=== PATIENT | male | born 1955 | race Caucasian/White ===

== ENCOUNTER 2021-03-24 05:13 | Observation (INO) ==
--- NOTE | 2021-03-04 15:52 | PAT Medication Instructions ---
Medication Instructions Date of Service March 04, 2021 Home Medications ascorbic acid (vitamin C) [Vitamin C] 500 mg PO DAILY cholecalciferol (vitamin D3) [Vitamin D3] 100 mcg PO DAILY ferrous sulfate [iron] 325 mg PO DAILY ibuprofen 400 mg PO HS levothyroxine 75 mcg PO QAM metformin 500 mg PO BID simvastatin 40 mg PO QAM vitamin B complex [B Complex] 1 tab PO DAILY ASK your surgeon for instructions ibuprofen 400 mg PO HS DO NOT take the morning of surgery ascorbic acid (vitamin C) [Vitamin C] 500 mg PO DAILY cholecalciferol (vitamin D3) [Vitamin D3] 100 mcg PO DAILY ferrous sulfate [iron] 325 mg PO DAILY metformin 500 mg PO BID vitamin B complex [B Complex] 1 tab PO DAILY Take morning of surgery With a small sip of water, OTHERWISE NOTHING TO EAT OR DRINK AFTER MIDNIGHT: levothyroxine 75 mcg PO QAM simvastatin 40 mg PO QAM Take evening before surgery metformin 500 mg PO BID Other Notes If you have any questions please call us at [phone] or [phone] or [phone] or [phone]
--- NOTE | 2021-03-08 11:31 | Anesthesiology Consultation ---
Date of Service March 08, 2021 Assessment & Plan (1) Encounter for pre-operative examination: - COVID screening: Per assessment on 03/08: Travel screen negative, no known COVID-19 positive contacts or current COVID-19 related symptoms. Patient vaccinated. Surgeon arranging preop COVID testing. Awaiting results. - ETOH use: 3 beers/day or less (typically nighttime use) - Check [facility] AM DOS Chart Review Chart Review: Acceptable Risk for Surgery (pending surgeon-ordered PCP clearance) and Patient seen in Pre Admission Testing Teaching & Discussion Pre-Anesthesia Teaching/Discussion Notes: Instructed NPO after midnight before surgery,except medications with 15 cc of water. Medication instructions provided according to the PAT guidelines. History Surgery Operation Date: 03/24/21 08:50 Proposed Procedures p Left Total Hip Arthroplasty - Scooby Rojo MD Height/Weight Height: 5 ft 9 in Weight: 77.9 kg Allergies Allergy/AdvReac Type Severity Reaction Status Date / Time Penicillins Allergy Unknown Unknown Verified 03/04/21 15:51 childhood reaction Medications Home Medications Medication Instructions Recorded Confirmed Last Taken ascorbic acid (vitamin C) [Vitamin 500 mg PO DAILY 03/03/21 03/03/21 Unknown C] cholecalciferol (vitamin D3) 100 mcg PO DAILY 03/03/21 03/03/21 Unknown [Vitamin D3] ferrous sulfate [iron] 325 mg PO DAILY 03/03/21 03/03/21 Unknown ibuprofen 400 mg PO HS 03/03/21 03/03/21 Unknown levothyroxine 75 mcg PO QAM 03/03/21 03/03/21 Unknown metformin 500 mg PO BID 03/03/21 03/03/21 Unknown simvastatin 40 mg PO QAM 03/03/21 03/03/21 Unknown vitamin B complex [B Complex] 1 tab PO DAILY 03/03/21 03/03/21 Unknown Past Medical History Medical History Diabetes mellitus, type 2 NIDDM Hyperlipidemia Hypothyroidism Osteoarthritis Exercise / Class Metabolic Activity II 4-5 Yardwork/Stairs/Walk up hill (one flight of stairs (no chest pain, no sob)) Past Family History Family History Mother Diabetes Father Diabetes Past Surgical History Surgical History History of colonoscopy History of esophagogastroduodenoscopy (EGD) History of surgery on right wrist (fracture repair) History of tonsillectomy History of total hip arthroplasty Right History of total knee replacement R/L Hx of inguinal hernia repair [place] teeth extracted Past Anesthesia History No Hx of Anesthesia Complications and No Family Hx of Anesthesia Complications History of PONV No Hx of PONV and No Hx of Motion Sickness Social History Smoking Status: Former smoker Do You Dip or Chew Tobacco: No Smoking End Date: Quit 40 yrs ago Hx Alcohol Use: Yes Alcohol type: beer alcohol intake frequency: 3 or more drinks per day Alcohol Intake Frequency Comment: 3 beers/day or less (typically nighttime use) Hx Substance Use: No substance use type: does not use Review of Systems No snoring. Patient denies chest pain, shortness of breath, dyspnea on exertion, fever, chills, cough, wheezing, palpitations. Physical Exam Vital Signs VITALS BP 120/76 P 66 TEMP 97.6 SP02 100%RA RESP 16 PHYSICAL Full cervical extension range of motion. Full TMJ range of motion. TMD 4 finger breaths Mallampati Score 3 Dentition: missing molars, upper front crown Lungs: clear throughout to auscultation, prolonged inspiratory phase Cardiac: regular rate and rhythm, no murmurs noted Spine: normal Carotid arteries: negative bruit Extremities: no edema Trimmed cole Lab Results Anesthesia Preop Results Results Anesthesia Widget: WBC 6.12 K/uL (4.8-10.8) 03/08/21 Hgb 14.5 g/dL (14.0-18.0) 03/08/21 Hct 40.6 % (42-52) L 03/08/21 Plt 223 K/uL (130-400) 03/08/21 Na 140 mmol/L (136-145) 03/08/21 K 4.1 mmol/L (3.5-5.1) 03/08/21 Cl 107 mmol/L (98-107) 03/08/21 CO2 27 mmol/L (21-32) 03/08/21 BUN 13 mg/dl (7-18) 03/08/21 Creat 0.70 mg/dl (0.6-1.4) 03/08/21 Glucose Level 113 mg/dl (70-99) H 03/08/21 PT 9.9 Seconds (9.0-12.0) 03/08/21 PTT 27.6 Seconds (21.0-31.0) 03/08/21 INR 1.0 (0.9-1.1) 03/08/21 HA1c 6.6 % (4.5-5.6) H 03/08/21 Urine Color Yellow 03/08/21 Urine Appearance Clear (Clear) 03/08/21 Urine pH 5.0 (4.5-7.5) 03/08/21 Urine Specific [place] 1.012 (1.000-1.030) 03/08/21 Urine Protein Negative (Negative) 03/08/21 Urine Glucose (UA) Negative (Negative) 03/08/21 Urine Ketones Negative (Negative) 03/08/21 Urine Blood Negative (Negative) 03/08/21 Urine Nitrite Negative (Negative) 03/08/21 Urine Bilirubin Negative (Negative) 03/08/21 Urine Urobilinogen Negative (Negative) 03/08/21 Urine Leukocyte Esterase 1+ (Negative) H 03/08/21 Urine WBC (Auto) 5-10 /hpf (0-5) H 03/08/21 Urine RBC (Auto) 0-4 /hpf (0-4) 03/08/21 Urine Hyaline Casts (Auto) 1-5 /lpf (0-5) 03/08/21 Urine Epithelial Cells (Auto) 0-5 /lpf (0-5) 03/08/21 Urine Bacteria (Auto) 3+ (Negative) H 03/08/21 Blood Type A Positive 03/08/21 Antibody Screen NEGATIVE 03/08/21 Lab Comments: Surgeon's office aware of positive UA. Testing Electrocardiogram Date: 04/07/21 Normal sinus rhythm at 63 bpm. LAD. Incomplete right bundle branch block. No significant change compared to 03/05/2007 per biophysics professor review. Chest X-Ray Date: 03/08/21 Findings: + NAD Echocardiogram Date: 11/07/19 EF 60%. Moderate LAD. Mild MR. Physiologic MD. Stress Test Date: 11/07/19 Stress EKG was negative for myocardial ischemia at 108% MPHR. High level of exercise achieved. 12.8 METS. Pulmonary Function Test Date: 11/07/19 Minimal obstructive lung defect. Lung volumes are within normal limits. Moderate decrease in diffusing capacity. FEF 25 to 75% change by 11%. This is interpreted as an insignificant response to bronchodilator.
--- NOTE | 2021-03-09 13:08 | History & Physical Report ---
Date of Service March 09, 2021 Assessment & Plan (1) Degenerative joint disease of left hip: Postoperative prescriptions for Percocet and Coumadin will be provided at discharge from the hospital. Anticipate discharge to home with home health services. He already has crutches and prefers to use those over a walker. Preoperative lab work, EKG, and chest x-ray were ordered. Medical clearance has already been performed by his PCP. The patient is aware of the COVID-19 risks associated with surgery. He is currently asymptomatic of any COVID-19 symptoms. He will obtain nasal swab testing 2 days prior to surgery per hospital protocol. PDMP was checked and there are no concerning findings. History of Present Illness Chief Complaint: Left hip pain Primary Care Provider: NO PCP This 65-year-old male presents for his preoperative history and physical. He is scheduled to undergo a left total hip arthroplasty on 03/24/2021 and has had left hip pain for the last 10 years. It has become worse over the last 6-12 months. 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 He notes loss of motion of the hip. Occasional night pain. Pain is worse with weightbearing. It is affecting his ADLs. He has a history of right total hip arthroplasty 16 years ago and states it is doing well. He elects to proceed with the same on the left. No numbness or tingling. Pain is primarily in his groin. Preoperative imaging has been obtained. Allergies Allergy/AdvReac Type Severity Reaction Status Date / Time Penicillins Allergy Unknown Unknown Verified 03/04/21 15:51 childhood reaction Home Medications Medication Instructions Recorded Confirmed Type ascorbic acid (vitamin C) [Vitamin 500 mg PO DAILY 03/03/21 03/03/21 History C] cholecalciferol (vitamin D3) 100 mcg PO DAILY 03/03/21 03/03/21 History [Vitamin D3] ferrous sulfate [iron] 325 mg PO DAILY 03/03/21 03/03/21 History ibuprofen 400 mg PO HS 03/03/21 03/03/21 History levothyroxine 75 mcg PO QAM 03/03/21 03/03/21 History metformin 500 mg PO BID 03/03/21 03/03/21 History simvastatin 40 mg PO QAM 03/03/21 03/03/21 History vitamin B complex [B Complex] 1 tab PO DAILY 03/03/21 03/03/21 History Past Med/Surg History Medical History Diabetes mellitus, type 2 NIDDM Hyperlipidemia Hypothyroidism Osteoarthritis Surgical History History of colonoscopy History of esophagogastroduodenoscopy (EGD) History of surgery on right wrist (fracture repair) History of tonsillectomy History of total hip arthroplasty Right History of total knee replacement R/L Hx of inguinal hernia repair [place] teeth extracted Family History Mother Diabetes Father Diabetes Other Cancer Social History (Updated 03/09/21 @ 13:04 by Magno Maciel PA-C) Smoking Status: Former smoker Second Hand Exposure: No; Hx Alcohol Use: Yes Alcohol type: beer Hx Substance Use: No Preferred Language: Nigerian Communication Ability: Effective Visual Impairment: No Limitations Shift Leader Required: No Beliefs That Will Affect Care: None marital status: Current Living Situation: Spouse current occupational status: employed Feels Safe at Home: Yes Assistive Devices: Glasses and Hearing Aid - Bilateral Review of Systems Review of Systems: All systems reviewed & are unremarkable except as noted in HPI & below A total of 10 systems were reviewed. Physical Exam Physical Exam: Vitals: Height 174.5 cm, weight 77.8 kilograms, BMI 25.5, temperature 36.3, BP 120/82, pulse 70, O2 sat 95% on room air. General: Well-developed, well-nourished, elderly white male in no acute distress. Sitting in a chair. Alert and oriented. Skin: Warm and dry with good turgor. No rashes or lesions. No ecchymosis or erythema. HEENT: Normocephalic, atraumatic. Eyes: PERRLA, EOMI. Nares and oropharynx exams deferred due to COVID precautions. Heart: RRR, no MGR. Lungs: Clear to auscultation bilaterally, no crackles, rhonchi or wheezing, good air movement. Abdomen: Bowel sounds present x4, soft, nontender. No organomegaly. No masses. Musculoskeletal: Left hip evaluation reveals no obvious asymmetry or deformity. He has no discomfort with palpation over the IT band or greater trochanter. There is anterior discomfort in the flexion crease with motion. Hip flexion to just 100 degrees before onset of significant pain. Internal rotation is limited to essentially neutral. He is fairly well locked in. External rotation of around 25 degrees before significant pain. Ambulating with an antalgic gait. Strength is 5/5 for resisted hip flexion, abduction, and adduction. Good quad strength for resisted knee extension. Neurologic: Gross sensation is intact across both lower extremities by soft touch. Peripheral pulses are 2+. Results & Data Results & Data ([facility]) Diagnostic Findings Radiographic imaging previously obtained shows significant osteoarthritic change within the femoral acetabular joint of the left hip. He is [id number]. Periarticular osteophytes are present. No evidence for fracture.
[2021-03-24] MEDS ORDERED: VANCOMYCIN HCL 1,250 MG in SODIUM CHLORIDE 0.9% 250 ML IV SCH ×2 (06:00→18:00)
[2021-03-24] MEDS ORDERED: LR 500ML BOLUS, THEN 15ML/HR IV SCH (06:00)
[2021-03-24] MEDS ORDERED: ROPIVACAINE 0.5% HCL/PF 150 MG, BUPIVACAINE 0.75% MPF 20 ML, EPINEPHrine 0.15 MG, Ketor... INFIL SCH (06:00)
[2021-03-24] MEDS ORDERED: TRANEXAMIC ACID 1,000 MG **IV Pre-op IV SCH (06:00)
--- NOTE | 2021-03-24 06:18 | History & Physical Bridge Note ---
Date of Service March 24, 2021 History & Physical Bridge Note I have examined the patient, reviewed the History & Physical and in the interval since the performance of the History & Physical I have noted the following changes of clinical significance: consent obtained/site verified/covid screen negative.no changes noted
[2021-03-24] MEDS ORDERED: fentaNYL citrate 100 MCG/2 ML VIAL ONE (06:25)
[2021-03-24] MEDS ORDERED: MIDAZOLAM HCL 1 MG/ML 2ML VIAL ONE (06:25)
[2021-03-24] MEDS ORDERED: ORTHO JOINT ANESTHETIC ONE (06:32)
[2021-03-24] MEDS ORDERED: BUPIVACAINE 0.5 % 5 MG/1 ML PF 10ML VIAL ONE (06:46)
[2021-03-24] MEDS ORDERED: ATROPINE SULFATE 0.1 MG/ML 10ML SYR IV PRN (06:56)
[2021-03-24] MEDS ORDERED: ePHEDrine sulfate 50 MG/ML AMP IV PRN (06:56)
[2021-03-24] MEDS ORDERED: ONDANSETRON INJ 2 MG/ML 2 ML VIAL IV PRN ×2 (06:56→09:39)
[2021-03-24] MEDS ORDERED: fentaNYL citrate 100 MCG/2 ML VIAL IV PRN (06:56)
[2021-03-24] MEDS ORDERED: PROPOFOL IV EMULSION 10 MG/ML 20 ML VIAL IV ONE (07:24)
[2021-03-24] MEDS ORDERED: ePHEDrine sulfate 50 MG/ML AMP ONE (07:35)
[2021-03-24] MEDS ORDERED: PHENYLEPHRINE 100MCG/ML 5ML SYR ONE (07:48)
--- NOTE | 2021-03-24 08:22 | Post Operative Brief Note ---
Immediate Post Op Note v1 Date of Surgery March 24, 2021 Pre & Post Diagnosis Operation Date: 03/24/21 07:00 Pre-Op Diagnosis: Left Hip Degenerative Joint Disease Post-Op Diagnosis: Left Hip Degenerative Joint Disease I identified the patient and participated in the time-out.: Yes Procedure Operation Date: 03/24/21 07:00 Actual Procedures p Left Total Hip Arthroplasty--Uncemented(Left) - Scooby Rojo MD Surgeon Scooby Rojo MD Supervisor Slashing [facility] Estimated Blood Loss 50 Findings Consistent with Post-Op Diagnosis
--- NOTE | 2021-03-24 08:29 | Operative Report ---
Post Operative Report Pre & Post Diagnosis Operation Date: 03/24/21 07:00 Pre-Op Diagnosis: Left Hip Degenerative Joint Disease Post-Op Diagnosis: Left Hip Degenerative Joint Disease I identified the patient and participated in the time-out.: Yes Procedure Operation Date: 03/24/21 07:00 Actual Procedures p Left Total Hip Arthroplasty--Uncemented(Left) - Scooby Rojo MD Surgeon HÉCTOR Rojo MD Marine Mammal Trainer guillermo OROZCO Estimated Blood Loss 50 Findings Consistent with Post-Op Diagnosis Specimens see operative report Drains none Complications none Disposition Accompanied Patient To Recovery: Yes Disposition: Recovery Room Indications This 65-year-old male presented to the office with complaints of persisting and intractable left hip pain. He had tried conservative care measures without improvement. He elected to proceed with surgical intervention after being educated about potential risks and outcomes. Preoperative imaging was obtained. He has a history of previous right total hip arthroplasty and has done well with it. He elects to proceed with the same on the left. Description of Procedure Patient was administered a spinal anesthetic and then taken to the operating room where he was given sedation. He was prepped and draped in the usual sterile fashion. Please see Dr. Rojo's operative report for specifics of the procedure. I was present for the entire case from initial patient positioning through final wound closure. Assistance was provided in tissue retraction, hemostasis, trial implant placement, final implant placement, and final wound closure. Patient was taken to the recovery room in satisfactory condition. I attest to the content of the Intraoperative Record and any orders documented therein. Any exceptions are noted below.
--- NOTE | 2021-03-24 08:46 | XRay Report ---
AP PELVIS History: Left total hip arthroplasty. Degenerative arthritis. Postop. FINDINGS: The patient is status post a left total hip arthroplasty. The hardware is intact. No fractu re or dislocation. Skin jennifer are in place. Evidence for prior right total arthroplasty. IMPRESSION: Left total hip arthroplasty. No evidence for hardware complication. ACT 112: Negative or not required by law. Electronically signed by: Jimy Yeh M.D. 03/24/2021 8:45 AM
--- NOTE | 2021-03-24 09:01 | Progress Notes ---
DATE OF NOTE: 03/24/2021. SUBJECTIVE: Postop check status post left total hip replacement. Patient is resting comfortably. D enies chest pain, shortness of breath, fever, chills, nausea, vomiting or headache. OBJECTIVE: Vital signs are stable. He is afebrile. Neurovascular check is limited by his spinal and is starting to wear off. Hip is located. Wound cristy ssing clean, dry and intact. Postoperative x-ray looks excellent. ASSESSMENT: Doing well. Continue with care pathway. Discharge likely tomorrow. Job ID: [id number]
--- NOTE | 2021-03-24 09:05 | Discharge Summary (DS) ---
DATE OF DISCHARGE: Potential 03/25/2021. CHIEF COMPLAINT: Left hip pain. HISTORY OF PRESENT ILLNESS: The patient underwent elective left total hip replacement. HOSPITAL COURSE: Has been uneventful to date. Postop x-rays look excellent. HOME MEDICATIONS: Please see medication reconciliation sheet includes metformin, simvastatin, levoth yroxine, ibuprofen, iron, vitamin D, vitamin C supplements, vitamin B supplements. PAST MEDICAL/PAST SURGICAL HISTORY: Remarkable for diabetes type 2, hyperlipidemia, hypothyroidism, o steoarthritis. SURGICAL HISTORY: Is remarkable for EGD, colonoscopies, right wrist surgery, tonsillectomy, right hip replacement, left and right knee replacement, inguinal hernia repair, wisdom teeth extraction. FAMILY HISTORY: Mother, diabetes. Father, diabetes. Cancer in the family. REVIEW OF SYSTEMS: Reveals no chest pain, shortness of breath, fever, chills, nausea, vomiting or he adache. The patient lives at home, is and has no issues. Is hard of hearing and has glasses and hearing aids. Postoperative x-rays look excellent. ASSESSMENT: Status post left total hip replacement. Continue with care pathway, discharge tomorrow if he does well overnight. Job ID: [id number]
--- NOTE | 2021-03-24 09:13 | Anesthesiology Progress Note ---
Date of Service March 24, 2021 Anesthesia Post Procedure Vital Signs Vital Signs: Temp Pulse Pulse Resp BP BP Pulse Ox 03/24/21 09:05 36.1 C L 65 20 110/82 98 03/24/21 08:55 60 14 108/71 100 03/24/21 08:45 66 16 110/69 100 03/24/21 08:35 82 18 120/72 100 03/24/21 08:28 36.3 C L 83 14 114/88 97 03/24/21 06:20 36.8 C 70 20 153/87 H 99 03/24/21 05:44 37.1 C 69 18 133/98 98 Transfer of Care Handoff Completed per policy Notes Mental Status: alert / awake / arousable Patient Amnestic to Procedure: Yes Nausea / Vomiting: adequately controlled Pain: adequately controlled Airway Patency, RR, SpO2: stable & adequate BP & HR: stable & adequate Hydration State: stable & adequate Neuraxial Anesthesia: was administered and sensory block is resolving Anesthetic Complications: no major complications apparent
--- NOTE | 2021-03-24 09:28 | Operative Report (OR) ---
DATE OF PROCEDURE: 03/24/2021. SURGEON: Scooby Rojo MD. MUSEUM SECURITY CHIEF: JERED Wilkinson, no resident or fellow available. PREOPERATIVE DIAGNOSIS: Osteoarthritis with severe impingement, left hip. POSTOPERATIVE DIAGNOSIS: Osteoarthritis with severe impingement, left hip. OPERATION PERFORMED: Noncemented left total hip replacement. SUMMARY OF IMPLANTS: Size 54 sector cup 30 screw 6.5 diameter, 36 x 54 neutral liner, 4 high offset Tri-Lock stem, 36+5 ceramic head. Hole eliminator. ESTIMATED BLOOD LOSS: 50 mL CRYSTALLOID: Per anesthesia. BONE PATHOLOGY: Pending. DVT prophylaxis per protocol. PERIOPERATIVE SITUATION: Medically cleared male with intractable hip pain with physical exam, x-ray v enrico consistent with severe osteoarthritis. He wants to proceed with surgical treatment had a hip rep lacement done on the opposite side many years ago. DESCRIPTION OF PROCEDURE: The patient was identified, site verified, consent verified. Antibiotics confirmed to be given. The left lower extremity was prepped and draped in usual routine fashion. Th e patient was placed in the right lateral decubitus position. Left lower extremity prepped and drape d in the usual routine fashion. A posterior approach to the hip was then made. Sharp dissection car ried through skin, blunt dissection down to fascia. The IT band and gluteus conrado fascia were then split. The sciatic nerve was identified. Appropriate retractors were placed. Short external rotat ors were identified and released, capsule released and teed and preserved. The hip was then dislocat ed. The femoral neck resected. The labrum and degenerative tissue was excised. Serial reaming de los santos ied up to a size 54, and a 54 cup impacted into appropriate inclination and anteversion. Excellent f ixation was obtained and a 6.5 x threaded screw was placed with excellent purchase. A trial liner wa s seated and the osteophytes were resected posteriorly and anteriorly. The wound was then irrigated. The hip was then flexed and internally rotated proximal femur prepared with a box toe flanger stitchdowns, canal fin rosaura, lateralizing rasp and serial broaching up to a size 4 and using a size 4 Tri-Lock high offset +5 neck length, 36 head was very stable in all planes. The leg lengths were within millimeters of equa lity, perhaps slightly long on the involved side. Hip was dislocated. The wound irrigated. All tri al implants were removed. The hole eliminator seated, permanent liner seated. Permanent head and st em seated. The hip reduced. It was stable in all planes. Leg lengths were again very, very close. Wound was irrigated one final time and then the capsule closed with #2 Vicryl. Short external rotat ors with #2 Vicryl. IT band and gluteus conrado fascia with #2 Vicryl, subcutaneous layer with 2-0 V icryl and stainless steel clips applied. The Orthomix was injected about the superficial layers only . The patient was then transferred to recovery room in satisfactory condition, having tolerated the procedure well. Job ID: [id number]
[2021-03-24] MEDS ORDERED: METOCLOPRAMIDE HCL INJ 5 MG/ML 2 ML VIAL IV PRN (09:39)
[2021-03-24] MEDS ORDERED: SODIUM CHLORIDE 0.9% 1000ML 1,000 ML IV SCH (09:39)
[2021-03-24] MEDS ORDERED: MAGNESIUM HYDROXIDE SUSP 30 ML UDC PO PRN (09:39)
[2021-03-24] MEDS ORDERED: VANCOMYCIN CONSULT ACTIVE PRN (09:39)
[2021-03-24] MEDS ORDERED: diphenhydrAMINE 50 MG/ML VIAL IV PRN (09:39)
[2021-03-24] MEDS ORDERED: bisacodyL 10 MG SUPP PR PRN (09:39)
[2021-03-24] MEDS ORDERED: HYDROmorphone INJ 0.5 MG/0.5 ML SYR IV PRN (09:39)
[2021-03-24] MEDS ORDERED: NALOXONE HCL 0.4 MG/1 ML VIAL/CARP IV PRN (09:39)
[2021-03-24] MEDS ORDERED: TAMSULOSIN HCL 0.4 MG CAP PO PRN (09:39)
[2021-03-24] MEDS: KETOROLAC TROMETHAMINE 15 MG/ML VIAL IV SCH ×3 (11:00→21:21)
[2021-03-24] MEDS: DOCUSATE SODIUM 100 MG CAP PO SCH ×2 (11:02→21:19)
[2021-03-24] MEDS: SIMVASTATIN 40 MG TAB PO SCH (11:02)
[2021-03-24] MEDS: MULTIVITAMIN TAB PO SCH (11:03)
[2021-03-24] MEDS: LEVOTHYROXINE SODIUM 75 MCG TABLET PO SCH (11:03)
[2021-03-24] MEDS ORDERED: GLUCOSE 10 TABS/TUBE PO PRN (11:45)
[2021-03-24] MEDS ORDERED: CARBOHYDRATES FOR HYPOGLYCEMIA PO PRN (11:45)
[2021-03-24] MEDS ORDERED: GLUCAGON FOR INJ 1 MG VIAL SQ PRN (11:45)
[2021-03-24] MEDS ORDERED: DEXTROSE 50% 50 ML SYRINGE IV PRN (11:45)
[2021-03-24] MEDS ORDERED: GLUCOSE 40% GEL 15 GM TUBE PO PRN (11:45)
[2021-03-24] MEDS: oxyCODONE HCL IR 5 MG TAB (IMMEDIATE RELEASE) PO PRN ×3 (13:03→21:19)
[2021-03-24] MEDS: ACETAMINOPHEN 500 MG TAB PO SCH ×2 (13:04→21:20)
[2021-03-24] MEDS: INSULIN ASPART 100 UNITS/ML 3 ML PEN SC SCH ×3 (13:42→21:15)
[2021-03-24] MEDS ORDERED: ORTHO WARFARIN NOMOGRAM SCH (14:00)
[2021-03-24] MEDS ORDERED: TRANEXAMIC ACID / 0.7% NACL 1,000 MG/100 ML BAG IV SCH (14:33)
[2021-03-24 16:15] LABS: Prothrombin Time 10.5 Seconds (9.0-12.0)
[2021-03-24] MEDS ORDERED: WARFARIN SOD 5 MG TAB PO SCH (16:30)
[2021-03-24] MEDS: ASCORBIC ACID 500 MG TAB PO SCH (18:23)
[2021-03-24] MEDS: FERROUS GLUCONATE 324 MG TAB PO SCH (18:23)
[2021-03-24] MEDS ORDERED: SENNA 8.6 MG TAB PO SCH (21:00)
[2021-03-25] MEDS: KETOROLAC TROMETHAMINE 15 MG/ML VIAL IV SCH (03:36)
[2021-03-25] MEDS: LEVOTHYROXINE SODIUM 75 MCG TABLET PO SCH (05:53)
[2021-03-25] MEDS: ACETAMINOPHEN 500 MG TAB PO SCH (05:53)
[2021-03-25 06:16] LABS: Hematocrit (blood only) 31.6 % (42-52); Hemoglobin 11.3 g/dL (14.0-18.0); Mean Corpuscular Hemoglobin 30.5 pg (25-34); Mean Corpuscular Hgb Conc 35.8 g/dL (32-36); Mean Corpuscular Volume 85.4 fL (80-100); Mean Platelet Volume 9.4 fL (7.4-10.4); Platelet Count 231 K/uL (130-400); RDW Coefficient of Variation 12.4 % (11.5-14.5); RDW Standard Deviation 38.4 fL (36.4-46.3); White Blood Count 8.32 K/uL (4.8-10.8)
[2021-03-25 06:23] LABS: Prothrombin Time 10.4 Seconds (9.0-12.0)
[2021-03-25 06:54] LABS: Basophils # (auto) 0.02 K/uL (0-0.2); Basophils % (auto) 0.2 %; Immature Granulocytes # (auto) 0.02 K/uL (0.00-0.02); Immature Granulocytes % (auto) 0.2 %; Lymphocytes # (auto) 1.59 K/uL (1.2-3.4); Lymphocytes % (auto) 19.1 %; Monocytes # (auto) 1.61 K/uL (0.11-0.59); Monocytes % (auto) 19.4 %; Neutrophils # (auto) 5.08 K/uL (1.4-6.5); Neutrophils % (auto) 61.1 %
[2021-03-25 06:55] LABS: BUN Creatinine Ratio 19.9 (10-20); Calcium 8.2 mg/dl (8.5-10.1); Creatinine Clr Calc Pharmacy 115.6 ml/min; Est GFR (Non-African American) 102.7 ml/min; Potassium 3.8 mmol/L (3.5-5.1)
--- NOTE | 2021-03-25 07:39 | Progress Notes ---
DATE OF SERVICE: 03/24/2021 SUBJECTIVE: Postoperative day #1, status post left total hip replacement. The patient is doing well. Denies chest pain, shortness of breath, fever, chills, nausea, vomiting or headache. OBJECTIVE: Vital signs are stable. He is afebrile. Neurovascular check, femoral sciatic nerve is normal.calves non tender. Wound dressing clean, dry and intact. He has a good quad set. Able to do ambulation, weightbearing as tolerated. LABORATORY DATA: Hematocrit stable at 31. INR is 1.0. ASSESSMENT AND PLAN: Doing well. Discharged to home today. Coumadin per nomogram. Follow up in 2 weeks for staple removal. Job ID: [id number] [facility]
[2021-03-25] MEDS ORDERED: WARFARIN SOD 5 MG TAB PO ONE (08:00)
[2021-03-25] MEDS: DOCUSATE SODIUM 100 MG CAP PO SCH (08:43)
[2021-03-25] MEDS: MULTIVITAMIN TAB PO SCH (08:43)
[2021-03-25] MEDS: SIMVASTATIN 40 MG TAB PO SCH (08:43)
[2021-03-25] MEDS: ASCORBIC ACID 500 MG TAB PO SCH (08:43)
[2021-03-25] MEDS: FERROUS GLUCONATE 324 MG TAB PO SCH (08:44)
[2021-03-25] MEDS: INSULIN ASPART 100 UNITS/ML 3 ML PEN SC SCH (08:46)
[2021-03-25] MEDS: oxyCODONE HCL IR 5 MG TAB (IMMEDIATE RELEASE) PO PRN (09:56)
--- NOTE | 2021-03-25 13:06 | Progress Notes ---
DATE OF SERVICE: 03/25/2021 SUBJECTIVE: The patient is seen in his room this morning. He is doing well. States he slept well. He has no complaints at this point. He states there is some left hip soreness, but no gómez pain. When I entered, he is ambulating about the room without his walker. No other complaints. He denies any chest pain, shortness of breath, nausea, vomiting, or abdominal pain. PHYSICAL EXAMINATION: Evaluation of the left hip reveals an intact post-surgical dressing. Upon rem oval, there is scant drainage on the inner pads. There is no active drainage from the wound. Expect ed postoperative ecchymosis. No edema. [place] are intact. Wound edges are well approximated. He has supple motion of his left hip. As previously stated, he is ambulating in the room without signs of discomfort. Neurologic: Gross sensation is intact across the left leg by soft touch. IMPRESSION: Left hip 1 day status post total hip arthroplasty. PLAN: The patient was educated regarding today's findings. Continue PT/OT today. Anticipate discha rge to home after therapy is completed. He will do outpatient labs. Prescription was provided. Scr ipts for Coumadin and Percocet were sent to his pharmacy. Written discharge instructions were provid ed. New pressure dressing was applied by me, using gauze, ABDs, and Medipore tape. He may keep this in place until seen in the office in 2 weeks for staple removal. He may shower, but should keep the wound and dressings dry. Continue the DUARTE hose daily. He was encouraged to use his walker when amb ulating. Call the office with any other concerns. Job ID: [id number]
== END 2021-03-25 12:15 | disposition home or self-care (01) ==
LOC: 3E 05:13 → ASU 05:13